=== PATIENT | female | born 1945 | race Caucasian/White ===

== ENCOUNTER 2020-12-11 12:09 | Emergency (ER) | payer OTHER, MEDICARE ==
[2020-12-11] MEDS ORDERED: HYDROcodone/Acetaminophen 5/325 mg Tablet ONE (12:53)
== END 2020-12-11 16:48 | disposition home or self-care (01) ==
LOC: CSHERS 12:09
DX: S52.511A Displaced fracture of right radial styloid process, initial encounter for closed fracture (principal); S52.614A Nondisplaced fracture of right ulna styloid process, initial encounter for closed fracture; S16.1XXA Strain of muscle, fascia and tendon at neck level, initial encounter; S09.90XA Unspecified injury of head, initial encounter; I10 Essential (primary) hypertension; K21.9 Gastro-esophageal reflux disease without esophagitis; I25.10 Atherosclerotic heart disease of native coronary artery without angina pectoris; E03.9 Hypothyroidism, unspecified; I48.91 Unspecified atrial fibrillation; M06.9 Rheumatoid arthritis, unspecified; M79.7 Fibromyalgia; M41.9 Scoliosis, unspecified; M32.9 Systemic lupus erythematosus, unspecified; I44.7 Left bundle-branch block, unspecified; W01.198A Fall on same level from slipping, tripping and stumbling with subsequent striking against other object, initial encounter; Z86.73 Personal history of transient ischemic attack (TIA), and cerebral infarction without residual deficits
CPT/HCPCS: 29515; 70450; 72125

== ENCOUNTER 2021-11-21 19:42 | Emergency (ER) | payer MEDICARE ==
[~2021-11-21 19:42] MED LIST: Iopamidol 300 61% 100 ML VIAL FS ONE
[2021-11-21] MEDS ORDERED: Ketorolac Tromethamine 30 MG/ML VIAL ONE (19:53)
[2021-11-21] MEDS ORDERED: Morphine 4 MG/ML VIAL ONE ×2 (19:53→22:56)
[2021-11-21 20:10] LABS: #Basophils 0.1 10x3/uL (0.0-0.2); #Eosinphils 0.1 10x3/uL (0.0-0.5); #Monocytes 0.8 10x3/uL (0.0-1.1); #Neutrophils 5.4 10x3/uL (1.5-8.4); %Basophils 0.4 % (0.0-2.0); %Eosinophils 1.1 % (0.0-6.0); %Lymphocytes 43.9 % (18.0-47.0); %Monocytes 6.8 % (0.0-10.0); %Neutrophils 47.4 % (40.0-75.0); Mean Corpuscular HGB CONC 33.7 g/dL (32.0-36.0); Mean Corpuscular Hemoglobin 29.7 pg (27.0-33.0); Mean Corpuscular Volume 88.1 fl (81.6-98.3); Mean Platelet Volume 11.8 fl (7.4-10.4); Platelet Count 357 10x3/uL (150-450); RBC Distribution Width 12.9 % (11.5-14.5); Red Blood Cell (RBC) Count 4.04 10x6/uL (3.90-5.03); White Blood Cell (WBC) Count 11.4 10x3/uL (3.5-10.5)
[2021-11-21] MEDS ORDERED: Ondansetron PF 4 MG/2 ML Vial ONE (20:14)
[2021-11-21 20:19] LABS: INR-International Normal Ratio 0.9; PTT 27.4 sec (22.0-33.0); Prothrombin Time 10.3 sec (9.5-12.1)
[2021-11-21 20:24] LABS: ALT (SGPT) Less than 6 U/L (8-55); AST (SGOT) 8 U/L (5-34); Alkaline Phosphatase 60 U/L (40-110); Anion Gap 14 mmol/L (10-20); BUN (Urea Nitrogen) 11 mg/dL (9.8-20.1); Bilirubin, Total 0.4 mg/dL (0.2-1.2); Calc. Creatinine Clearance 0 mL/min (70-130); Calcium 8.9 mg/dL (7.8-10.44); Carbon Dioxide 20 mmol/L (23-31); Chloride 112 mmol/L (98-107); Estimated GFR 65; Glucose 103 mg/dL (83-110); Lipase 10 U/L (8-78); Potassium 3.5 mmol/L (3.5-5.1); Sodium 142 mmol/L (136-145)
== END 2021-11-22 01:08 | disposition home or self-care (01) ==
LOC: CSHERS 19:42
DX: S22.24XA Fracture of xiphoid process, initial encounter for closed fracture (principal); R07.89 Other chest pain; I25.10 Atherosclerotic heart disease of native coronary artery without angina pectoris; I10 Essential (primary) hypertension; E03.9 Hypothyroidism, unspecified; I48.91 Unspecified atrial fibrillation; X50.0XXA Overexertion from strenuous movement or load, initial encounter
CPT/HCPCS: 71045; 74177; 80053; 83690; 84484; 85025; 85610; 85730; 96374; 96375; 96376; J1885; J2270; J2405; Q9967

== ENCOUNTER 2022-04-11 17:32 | Emergency (ER) | payer OTHER ==
[2022-04-11] MEDS ORDERED: Ketorolac Tromethamine 30 MG/ML VIAL ONE (18:08)
== END 2022-04-11 19:05 | disposition home or self-care (01) ==
LOC: CSHERS 17:32
DX: S22.41XA Multiple fractures of ribs, right side, initial encounter for closed fracture (principal); K21.9 Gastro-esophageal reflux disease without esophagitis; I25.10 Atherosclerotic heart disease of native coronary artery without angina pectoris; I48.91 Unspecified atrial fibrillation; E03.9 Hypothyroidism, unspecified; I10 Essential (primary) hypertension; W01.0XXA Fall on same level from slipping, tripping and stumbling without subsequent striking against object, initial encounter
CPT/HCPCS: 71250; 96372; J1885

== ENCOUNTER 2022-04-16 16:10 | Emergency (ER) | payer MEDICARE, OTHER ==
[2022-04-16] MEDS ORDERED: Ketorolac Tromethamine 30 MG/ML VIAL ONE (17:37)
[2022-04-16] MEDS ORDERED: HYDROcodone/Acetaminophen 10/325 mg Tablet ONE (18:41)
[2022-04-16] MEDS ORDERED: Lidocaine 5% Patch TD SCH (19:00)
[2022-04-17] MEDS ORDERED: Transdermal Patch Removal TOP SCH (07:00)
== END 2022-04-16 19:52 | disposition home or self-care (01) ==
LOC: CSHERS 16:10
DX: S22.31XA Fracture of one rib, right side, initial encounter for closed fracture (principal); I25.10 Atherosclerotic heart disease of native coronary artery without angina pectoris; I10 Essential (primary) hypertension; W19.XXXA Unspecified fall, initial encounter
CPT/HCPCS: 71045; 96372; J1885

== ENCOUNTER 2022-04-20 19:42 | Emergency (ER) | payer MEDICARE ==
[2022-04-20] MEDS ORDERED: HYDROcodone/Acetaminophen 5/325 mg Tablet ONE (20:50)
[2022-04-20 21:15] LABS: #Basophils 0.1 10x3/uL (0.0-0.2); #Eosinphils 0.5 10x3/uL (0.0-0.5); #Monocytes 0.7 10x3/uL (0.0-1.1); #Neutrophils 7.2 10x3/uL (1.5-8.4); %Basophils 0.7 % (0.0-2.0); %Lymphocytes 28.5 % (18.0-47.0); %Monocytes 5.7 % (0.0-10.0); %Neutrophils 60.8 % (40.0-75.0); Hemoglobin 12.1 g/dL (12.0-15.5); Mean Corpuscular HGB CONC 32.5 g/dL (32.0-36.0); Mean Corpuscular Hemoglobin 28.7 pg (27.0-33.0); Mean Corpuscular Volume 88.2 fl (81.6-98.3); Mean Platelet Volume 10.9 fl (7.4-10.4); Platelet Count 374 10x3/uL (150-450); RBC Distribution Width 13.4 % (11.5-14.5); Red Blood Cell (RBC) Count 4.22 10x6/uL (3.90-5.03); White Blood Cell (WBC) Count 11.8 10x3/uL (3.5-10.5)
[2022-04-20 21:25] LABS: ALT (SGPT) Less than 6 U/L (8-55); AST (SGOT) 10 U/L (5-34); Albumin 3.8 g/dL (3.4-4.8); Alkaline Phosphatase 74 U/L (40-110); Anion Gap 13 mmol/L (10-20); BUN (Urea Nitrogen) 13 mg/dL (9.8-20.1); Bilirubin, Total 0.3 mg/dL (0.2-1.2); Calc. Creatinine Clearance 0 mL/min (70-130); Carbon Dioxide 24 mmol/L (23-31); Chloride 105 mmol/L (98-107); Estimated GFR 62; Globulin 2.6 g/dL (2.4-3.5); Glucose 97 mg/dL (83-110); Lipase 10 U/L (8-78); Potassium 4.1 mmol/L (3.5-5.1); Protein, Total 6.4 g/dL (5.8-8.1); Sodium 138 mmol/L (136-145)
== END 2022-04-20 23:08 | disposition home or self-care (01) ==
LOC: CSHERS 19:42
DX: S22.31XA Fracture of one rib, right side, initial encounter for closed fracture (principal); K21.9 Gastro-esophageal reflux disease without esophagitis; I25.10 Atherosclerotic heart disease of native coronary artery without angina pectoris; E03.9 Hypothyroidism, unspecified; I10 Essential (primary) hypertension; M79.7 Fibromyalgia; M06.9 Rheumatoid arthritis, unspecified; M41.9 Scoliosis, unspecified; M32.9 Systemic lupus erythematosus, unspecified; W06.XXXA Fall from bed, initial encounter; Z86.73 Personal history of transient ischemic attack (TIA), and cerebral infarction without residual deficits
CPT/HCPCS: 36415; 71045; 80053; 83690; 84484; 85025; 93005

== ENCOUNTER 2022-05-03 18:16 | Inpatient (IN) | payer MEDICARE ==
[~2022-05-03 18:16] MED LIST changes: -Iopamidol 300 61% 100 ML VIAL FS ONE; +Iopamidol 370 76% 50 ML VIAL FS ONE
[2022-05-03 19:28] LABS: #Basophils 0.1 10x3/uL (0.0-0.2); #Eosinphils 0.6 10x3/uL (0.0-0.5); #Monocytes 0.7 10x3/uL (0.0-1.1); #Neutrophils 4.8 10x3/uL (1.5-8.4); %Basophils 0.5 % (0.0-2.0); %Eosinophils 5.7 % (0.0-6.0); %Lymphocytes 37.2 % (18.0-47.0); %Monocytes 7.1 % (0.0-10.0); %Neutrophils 49.3 % (40.0-75.0); Hemoglobin 10.2 g/dL (12.0-15.5); Mean Corpuscular HGB CONC 31.7 g/dL (32.0-36.0); Mean Corpuscular Hemoglobin 28.4 pg (27.0-33.0); Mean Corpuscular Volume 89.7 fl (81.6-98.3); Mean Platelet Volume 11.2 fl (7.4-10.4); Platelet Count 259 10x3/uL (150-450); Red Blood Cell (RBC) Count 3.59 10x6/uL (3.90-5.03); White Blood Cell (WBC) Count 9.7 10x3/uL (3.5-10.5)
[2022-05-03 19:37] LABS: ALT (SGPT) Less than 6 U/L (8-55); AST (SGOT) 9 U/L (5-34); Albumin 3.2 g/dL (3.4-4.8); Alkaline Phosphatase 73 U/L (40-110); Anion Gap 12 mmol/L (10-20); BUN (Urea Nitrogen) 20 mg/dL (9.8-20.1); Bilirubin, Total 0.6 mg/dL (0.2-1.2); Calc. Creatinine Clearance 0 mL/min (70-130); Calcium 7.9 mg/dL (7.8-10.44); Carbon Dioxide 23 mmol/L (23-31); Chloride 108 mmol/L (98-107); Estimated GFR 39; Globulin 2.2 g/dL (2.4-3.5); Glucose 84 mg/dL (83-110); Lipase 5 U/L (8-78); Potassium 4.1 mmol/L (3.5-5.1); Protein, Total 5.4 g/dL (5.8-8.1); Sodium 139 mmol/L (136-145)
[2022-05-03] MEDS ORDERED: Lactated Ringer's 1,000 ML IV SCH (20:30)
[2022-05-03 20:43] LABS: Bilirubin Neg (Negative); Blood, Urine Negative (Negative); Clarity Slightly Cloudy (Clear); Glucose, Urine (Dipstick) Normal (Negative); Ketone, Urine Negative (Negative); Leukocyte 100 (Negative); Nitrite Negative (Negative); Protein, Urine (Dipstick) Negative (Neg-Trace); Urobilinogen Normal mg/dL (Less than 2)
[2022-05-03 20:53] LABS: RBC/HPF 0-3 HPF (0-3); WBC/HPF 0-3 HPF (0-3)
[2022-05-03 20:54] LABS: Bacteria/HPF Rare-Few HPF (None Seen)
[2022-05-03] MEDS ORDERED: Guaifenesin DM 100-10/5 ML UDCUP PO PRN (21:18)
[2022-05-03] MEDS ORDERED: Ondansetron PF 4 MG/2 ML Vial IVP PRN (21:18)
[2022-05-03] MEDS ORDERED: Acetaminophen 325 MG TAB PO PRN (21:18)
[2022-05-03] MEDS ORDERED: Calcium Carbonate 500 MG ChewTAB PO PRN (21:18)
[2022-05-03 22:22] VITALS: BMI 35.0
[2022-05-04 05:58] LABS: #Basophils 0.1 10x3/uL (0.0-0.2); #Eosinphils 0.6 10x3/uL (0.0-0.5); #Monocytes 0.5 10x3/uL (0.0-1.1); #Neutrophils 3.7 10x3/uL (1.5-8.4); %Basophils 0.9 % (0.0-2.0); %Eosinophils 7.4 % (0.0-6.0); %Lymphocytes 39.1 % (18.0-47.0); %Monocytes 6.4 % (0.0-10.0); %Neutrophils 45.9 % (40.0-75.0); Hemoglobin 10.3 g/dL (12.0-15.5); Mean Corpuscular HGB CONC 31.8 g/dL (32.0-36.0); Mean Corpuscular Hemoglobin 28.5 pg (27.0-33.0); Mean Corpuscular Volume 89.8 fl (81.6-98.3); Mean Platelet Volume 11.7 fl (7.4-10.4); Platelet Count 264 10x3/uL (150-450); RBC Distribution Width 13.8 % (11.5-14.5); Red Blood Cell (RBC) Count 3.61 10x6/uL (3.90-5.03)
[2022-05-04] MEDS: metroNIDAZOLE 500 MG in Premix Bag 1 BAG IVPB SCH ×3 (05:58→22:06)
[2022-05-04 06:14] LABS: Anion Gap 13 mmol/L (10-20); BUN (Urea Nitrogen) 13 mg/dL (9.8-20.1); Calc. Creatinine Clearance 65 mL/min (70-130); Calcium 8.5 mg/dL (7.8-10.44); Carbon Dioxide 23 mmol/L (23-31); Cardiac Risk 3.4 (Less than 4.5); Chloride 111 mmol/L (98-107); Cholesterol 115 mg/dl (< 200 Desired); Estimated GFR 54; Glucose 80 mg/dL (83-110); HDL Cholesterol 34 mg/dL (>60 Neg Risk); LDL Cholesterol, Calculated 60 mg/dL; Potassium 4.3 mmol/L (3.5-5.1); Sodium 143 mmol/L (136-145); Triglycerides 106 mg/dL (Less than 150)
[2022-05-04 07:24] LABS: Magnesium 2.1 mg/dL (1.6-2.6)
[2022-05-04] MEDS: cefTRIAXone\\ROCEPHIN 2 GM in Sodium Chloride 0.9% 100 ML IVPB SCH (08:34)
[2022-05-04] MEDS: Aspirin 81 mg Enteric Coated Tablet PO SCH (08:34)
[2022-05-04] MEDS ORDERED: Famotidine/PF 20 mg/2ml Vial SLOW IVP SCH (09:00)
[2022-05-04] MEDS ORDERED: clonazePAM 1 MG TAB PO PRN (11:52)
[2022-05-04] MEDS: Rosuvastatin 10 MG TAB PO SCH (20:33)
[2022-05-04] MEDS: traMADol HCl 50 MG TAB PO PRN (20:38)
[2022-05-05] MEDS: Levothyroxine Sodium 25 MCG TAB PO SCH (05:19)
[2022-05-05] MEDS: metroNIDAZOLE 500 MG in Premix Bag 1 BAG IVPB SCH ×3 (05:20→22:58)
[2022-05-05] MEDS: Levothyroxine Sodium 112 MCG TAB PO SCH (05:24)
[2022-05-05 06:03] LABS: #Basophils 0.1 10x3/uL (0.0-0.2); #Eosinphils 0.5 10x3/uL (0.0-0.5); #Monocytes 0.5 10x3/uL (0.0-1.1); #Neutrophils 2.3 10x3/uL (1.5-8.4); %Basophils 0.8 % (0.0-2.0); %Eosinophils 7.7 % (0.0-6.0); %Lymphocytes 45.3 % (18.0-47.0); %Monocytes 8.2 % (0.0-10.0); %Neutrophils 37.7 % (40.0-75.0); Hemoglobin 10.9 g/dL (12.0-15.5); Mean Corpuscular HGB CONC 31.9 g/dL (32.0-36.0); Mean Corpuscular Hemoglobin 28.1 pg (27.0-33.0); Mean Corpuscular Volume 88.1 fl (81.6-98.3); Mean Platelet Volume 11.3 fl (7.4-10.4); Platelet Count 295 10x3/uL (150-450); RBC Distribution Width 13.7 % (11.5-14.5); Red Blood Cell (RBC) Count 3.88 10x6/uL (3.90-5.03)
[2022-05-05 06:35] LABS: Anion Gap 12 mmol/L (10-20); BUN (Urea Nitrogen) 10 mg/dL (9.8-20.1); Calc. Creatinine Clearance 82 mL/min (70-130); Calcium 8.5 mg/dL (7.8-10.44); Carbon Dioxide 23 mmol/L (23-31); Chloride 109 mmol/L (98-107); Estimated GFR 71; Glucose 109 mg/dL (83-110); Potassium 3.3 mmol/L (3.5-5.1); Sodium 141 mmol/L (136-145)
[2022-05-05] MEDS ORDERED: Sodium Chloride 0.9% 100 ML ONE (08:18)
[2022-05-05] MEDS: cefTRIAXone\\ROCEPHIN 2 GM in Sodium Chloride 0.9% 100 ML IVPB SCH (09:03)
[2022-05-05] MEDS: Famotidine/PF 20 mg/2ml Vial SLOW IVP SCH ×2 (09:03→22:57)
[2022-05-05] MEDS: Cyclobenzaprine 10 MG TAB PO SCH (09:04)
[2022-05-05] MEDS: Aspirin 81 mg Enteric Coated Tablet PO SCH (09:04)
[2022-05-05] MEDS ORDERED: Potassium Chloride 20 MEQ TAB PO SCH (13:00)
[2022-05-05] MEDS: Flecainide 50 MG TAB PO SCH (22:58)
[2022-05-05] MEDS: Rosuvastatin 10 MG TAB PO SCH (23:09)
[2022-05-06] MEDS: traMADol HCl 50 MG TAB PO PRN (02:33)
[2022-05-06] MEDS: Levothyroxine Sodium 25 MCG TAB PO SCH (06:23)
[2022-05-06] MEDS: Levothyroxine Sodium 112 MCG TAB PO SCH (06:23)
[2022-05-06] MEDS: metroNIDAZOLE 500 MG in Premix Bag 1 BAG IVPB SCH (06:23)
[2022-05-06 06:27] LABS: #Basophils 0.1 10x3/uL (0.0-0.2); #Eosinphils 0.4 10x3/uL (0.0-0.5); #Monocytes 0.6 10x3/uL (0.0-1.1); #Neutrophils 3.3 10x3/uL (1.5-8.4); %Basophils 0.8 % (0.0-2.0); %Eosinophils 5.7 % (0.0-6.0); %Lymphocytes 41.9 % (18.0-47.0); %Monocytes 7.9 % (0.0-10.0); %Neutrophils 43.6 % (40.0-75.0); Hemoglobin 12.1 g/dL (12.0-15.5); Mean Corpuscular HGB CONC 32.4 g/dL (32.0-36.0); Mean Corpuscular Hemoglobin 28.1 pg (27.0-33.0); Mean Platelet Volume 11.6 fl (7.4-10.4); Platelet Count 345 10x3/uL (150-450); RBC Distribution Width 13.9 % (11.5-14.5); White Blood Cell (WBC) Count 7.5 10x3/uL (3.5-10.5)
[2022-05-06 06:42] LABS: ALT (SGPT) Less than 6 U/L (8-55); AST (SGOT) 12 U/L (5-34); Albumin 3.7 g/dL (3.4-4.8); Alkaline Phosphatase 89 U/L (40-110); Anion Gap 16 mmol/L (10-20); BUN (Urea Nitrogen) 10 mg/dL (9.8-20.1); Bilirubin, Total 0.5 mg/dL (0.2-1.2); Calc. Creatinine Clearance 79 mL/min (70-130); Calcium 9.4 mg/dL (7.8-10.44); Carbon Dioxide 21 mmol/L (23-31); Chloride 108 mmol/L (98-107); Estimated GFR 67; Globulin 2.7 g/dL (2.4-3.5); Glucose 92 mg/dL (83-110); Potassium 4.1 mmol/L (3.5-5.1); Protein, Total 6.4 g/dL (5.8-8.1); Sodium 141 mmol/L (136-145)
[2022-05-06] MEDS: Cyclobenzaprine 10 MG TAB PO SCH (09:29)
[2022-05-06] MEDS: Flecainide 50 MG TAB PO SCH (09:29)
[2022-05-06] MEDS: Famotidine/PF 20 mg/2ml Vial SLOW IVP SCH (09:29)
[2022-05-06] MEDS: Aspirin 81 mg Enteric Coated Tablet PO SCH (09:29)
[2022-05-06] MEDS: cefTRIAXone\\ROCEPHIN 2 GM in Sodium Chloride 0.9% 100 ML IVPB SCH (09:30)
[2022-05-06 11:39] VITALS: BP 170/88; TEMP 98.3
[2022-05-06] MEDS: ROSUVASTATIN 5 MG PO SCH ×2 (12:58→12:59)
== END 2022-05-06 13:02 | disposition home health service (06) | DRG 392 ==
LOC: CSHERS 18:16 → CSHTELE 22:21
PROVIDERS: ADMIT Student in an Organized Health Care Education/Training Program; ATTEND Internal Medicine
DX: K57.92 Diverticulitis of intestine, part unspecified, without perforation or abscess without bleeding (principal); N17.9 Acute kidney failure, unspecified; J98.11 Atelectasis; E86.0 Dehydration; I48.0 Paroxysmal atrial fibrillation; I44.7 Left bundle-branch block, unspecified; E78.5 Hyperlipidemia, unspecified; E03.9 Hypothyroidism, unspecified; M79.7 Fibromyalgia; K21.9 Gastro-esophageal reflux disease without esophagitis; I25.10 Atherosclerotic heart disease of native coronary artery without angina pectoris; R00.1 Bradycardia, unspecified; R53.81 Other malaise; I50.9 Heart failure, unspecified; I11.0 Hypertensive heart disease with heart failure; S22.31XD Fracture of one rib, right side, subsequent encounter for fracture with routine healing; E87.6 Hypokalemia; Z90.710 Acquired absence of both cervix and uterus; Z90.49 Acquired absence of other specified parts of digestive tract; Z98.890 Other specified postprocedural states; Z86.73 Personal history of transient ischemic attack (TIA), and cerebral infarction without residual deficits; Z79.82 Long term (current) use of aspirin; Z79.890 Hormone replacement therapy; Z79.899 Other long term (current) drug therapy; Z88.8 Allergy status to other drugs, medicaments and biological substances; Z91.048 Other nonmedicinal substance allergy status; Z98.84 Bariatric surgery status; Z82.49 Family history of ischemic heart disease and other diseases of the circulatory system; Z20.822 Contact with and (suspected) exposure to COVID-19
CPT/HCPCS: 36415; 70450; 70496; 70498; 70551; 71045; 74177; 80048; 80053; 80061; 81003; 81015; 83690; 83735; 83880; 84443; 84484; 85025; 93005; 93306; 94760; 96361; 96365; 96375; J0696; J1650; J3490; J7120; Q9967; S0028; U0003; U0005